=== PATIENT | male | born 1950 | race Two or more races ===

== ENCOUNTER → 2023-11-27 | Emergency (ER) | payer OTHER ==
[~2023-11-27] VITALS: Ht 160 cm; Wt 70.3 kg
[~2023-11-27] MED LIST: DICLOFENAC SODI50 MG PO; LOTENSIN20 MG PO; NORFLEX100MG PO
== END | disposition home or self-care (01) ==
LOC: ER 17:24
DX: M25.511 Pain in right shoulder (principal); M77.8 Other enthesopathies, not elsewhere classified; R07.9 Chest pain, unspecified; I10 Essential (primary) hypertension
CPT/HCPCS: 71046; 73030; 96372; 99284; J1885